=== PATIENT | female | born 1955 | race African-American/Black ===

== ENCOUNTER 2025-02-13 18:35 | Inpatient (IN) | payer MEDICARE, MEDICAID ==
[~2025-02-13] VITALS: Ht 160 cm; Wt 61.2 kg
[2025-02-13 18:44] VITALS: O2SAT 90
[2025-02-13 19:25] LABS: MEAN PLATELET VOLUME 9.7 fl (7.4-10.4); PLATELET 116 x1000/uL (130-400); RED BLOOD CELL COUNT 1.62 mill/uL (4.2-5.4); RED CELL DISTRIBUTION WIDTH 20.8 % (11.6-14.6)
[2025-02-13 19:33] LABS: HEMATOCRIT. 16.7 % (36.0-48.0); HEMOGLOBIN. 5.3 g/dL (12.0-16.0)
[2025-02-13 19:34] LABS: UREA NITROGEN BLOOD 35 mg/dL (9-23)
[2025-02-13 19:35] LABS: PROTEIN TOTAL 7.1 g/dL (6.0-8.3)
[2025-02-13 19:36] LABS: ASPARTATE AMINOTRANSFERASE 127 IU/L (<34); BILIRUBIN DIRECT 0.2 mg/dL (<=3.0); BILIRUBIN TOTAL 0.3 mg/dL (0.1-1.0)
[2025-02-13 19:53] LABS: CREATININE 7.4 mg/dL (0.6-1.0)
[2025-02-13 20:17] LABS: LYMPHOCYTES % MANUAL 23.0 % (20.0-60.0); MONOCYTES % MANUAL 7.0 % (2.0-8.0); NEUTROPHILS % MANUAL 70.0 % (45.0-75.0); NUCLEATED RED BLOOD CELLS 2 /100 WBC; PLATELET ESTIMATE DECREASED
[2025-02-13 22:00] VITALS: BP 126/79; PULSE 78; RESP 16; TEMP 36.5; O2SAT 98
[2025-02-13] MEDS ORDERED: DEXTROSE 50% WATER 50ML SYRINGE IV PRN (23:45)
[2025-02-13] MEDS ORDERED: ACETAMINOPHEN 325MG TABLET PO PRN ×2 (23:45)
[2025-02-13] MEDS ORDERED: DIPHENHYDRAMINE 50MG/ML VIAL IV PRN (23:45)
[2025-02-13] MEDS ORDERED: ONDANSETRON HCL 4MG/2ML INJ IV PRN (23:45)
[2025-02-14] VITALS (22 sets, daily range): BP systolic 97–147; BP diastolic 42–80; PULSE 55–79; RESP 12–20; TEMP 35.11392–38.6142; O2SAT 96–100
[2025-02-14] MEDS ORDERED: ARIP5TAB51 PO (04:57)
[2025-02-14] MEDS ORDERED: ALLO100T PO (04:57)
[2025-02-14] MEDS ORDERED: QUET25TA36 PO (05:02)
[2025-02-14] MEDS ORDERED: OLAN10TA72 PO (05:02)
[2025-02-14] MEDS ORDERED: LEVO25TA7 PO (05:02)
[2025-02-14] MEDS ORDERED: LISI-186 PO (05:02)
[2025-02-14] MEDS ORDERED: TRAZ-251 PO (05:02)
[2025-02-14] MEDS: SODIUM CHLORIDE 0.9% 1,000 ML IV SCH (06:07)
[2025-02-14] MEDS: BLOOD SUGAR DIAGNOSTIC STRIP TEST SCH (07:10)
[2025-02-14] MEDS: SODIUM CHLORIDE 0.9% 3ML FLUSH IVF SCH (09:06)
[2025-02-14] MEDS: ARIPIPRAZOLE 5MG TABLET PO SCH (09:07)
[2025-02-14] MEDS: INSULIN LISPRO 100 UNITS/ML SUBCUT SCH (09:07)
[2025-02-14] MEDS: LISINOPRIL 5MG TABLET PO SCH (09:07)
[2025-02-14] MEDS: PANTOPRAZOLE SODIUM 40 MG/VIAL IV SCH (09:07)
[2025-02-14] MEDS: TRAZODONE HCL 50MG TABLET PO SCH (20:53)
[2025-02-15] VITALS: BP 122/46; PULSE 69; RESP 16; TEMP 36.6; O2SAT 98
[2025-02-15 04:00] VITALS: BP 147/50; PULSE 70; RESP 18; TEMP 36.6; O2SAT 98
[2025-02-15 08:00] VITALS: BP 140/48; PULSE 65; RESP 18; TEMP 36.6; O2SAT 98
[2025-02-15] MEDS: FOLIC ACID/VITAMIN B COMP W-C TABLET PO SCH (10:53)
[2025-02-15 12:00] VITALS: BP 138/50; PULSE 67; RESP 18; TEMP 36.7; O2SAT 99
[2025-02-15 13:13] LABS: HEMATOCRIT. 26.5 % (36.0-48.0); HEMOGLOBIN. 8.7 g/dL (12.0-16.0); MEAN PLATELET VOLUME 9.8 fl (7.4-10.4); PLATELET 109 x1000/uL (130-400); RED BLOOD CELL COUNT 2.73 mill/uL (4.2-5.4); RED CELL DISTRIBUTION WIDTH 20.1 % (11.6-14.6)
[2025-02-15 13:30] LABS: PHOSPHORUS 3.5 mg/dL (2.5-4.9)
[2025-02-15] MEDS ORDERED: MENTHOL/LANOLIN/CALAMINE/ZN OX OINT 71GM TOP PRN (14:00)
[2025-02-15 16:00] VITALS: BP 140/48; PULSE 68; RESP 17; TEMP 36.6; O2SAT 98
[2025-02-15] MEDS: POTASSIUM CHLORIDE 20MEQ TABLET SR PO SCH (17:41)
[2025-02-15 17:59] LABS: LYMPHOCYTES % MANUAL 17.0 % (20.0-60.0); MONOCYTES % MANUAL 5.0 % (2.0-8.0); NEUTROPHILS % MANUAL 78.0 % (45.0-75.0); NUCLEATED RED BLOOD CELLS 4 /100 WBC; PLATELET ESTIMATE NORMAL
[2025-02-15 20:00] VITALS: BP 121/56; PULSE 82; RESP 20; TEMP 36.7; O2SAT 98
[2025-02-16] VITALS (12 sets, daily range): BP systolic 103–153; BP diastolic 55–80; PULSE 70–93; RESP 17–20; TEMP 36–37.00296; O2SAT 96–98
[2025-02-16] MEDS: LORAZEPAM 2MG/ML UD SYRINGE IV SCH (12:13)
[2025-02-17] VITALS: BP 130/80; PULSE 83; RESP 18; TEMP 37; O2SAT 97
[2025-02-17 04:00] VITALS: BP 145/58; PULSE 81; RESP 20; TEMP 36.7; O2SAT 98
[2025-02-17 08:00] VITALS: BP 129/85; PULSE 79; RESP 18; TEMP 36.6; O2SAT 98
[2025-02-17 12:00] VITALS: BP 132/80; PULSE 89; RESP 18; TEMP 37.1; O2SAT 98
[2025-02-17 16:00] VITALS: BP 132/70; PULSE 74; RESP 18; TEMP 37; O2SAT 98
[2025-02-17 20:00] VITALS: BP 153/69; PULSE 96; RESP 19; TEMP 37.1; O2SAT 100
[2025-02-18] VITALS (15 sets, daily range): BP systolic 116–166; BP diastolic 44–80; PULSE 73–89; RESP 16–18; TEMP 36.22512–36.8; O2SAT 95–100
[2025-02-18] MEDS: ZOLPIDEM TARTRATE 5MG TABLET PO PRN (02:50)
[2025-02-18] MEDS: PROMETHAZINE/DEXTROMETHORPHAN 6.25-15MG/5ML PO PRN (03:53)
[2025-02-18] MEDS: ARIPIPRAZOLE 5MG TABLET PO SCH (13:38)
[2025-02-18] MEDS: LOPERAMIDE HCL 2MG CAPSULE PO PRN (20:38)
[2025-02-18] MEDS: QUETIAPINE FUMARATE 25MG TABLET PO SCH (20:38)
[2025-02-19] VITALS: BP 148/75; PULSE 80; RESP 18; TEMP 36.1; O2SAT 96
[2025-02-19 04:00] VITALS: BP 133/55; PULSE 81; RESP 18; TEMP 36.2; O2SAT 96
[2025-02-19 08:30] VITALS: BP 101/41; PULSE 73; RESP 18; TEMP 35.6; O2SAT 97
[2025-02-19 08:37] LABS: HEMATOCRIT. 25.0 % (36.0-48.0); HEMOGLOBIN. 8.3 g/dL (12.0-16.0); MEAN PLATELET VOLUME 8.8 fl (7.4-10.4); PLATELET 121 x1000/uL (130-400); RED BLOOD CELL COUNT 2.61 mill/uL (4.2-5.4); RED CELL DISTRIBUTION WIDTH 18.3 % (11.6-14.6)
[2025-02-19 08:46] LABS: UREA NITROGEN BLOOD 48.0 mg/dL (9-23)
[2025-02-19 08:52] LABS: CREATININE 9.3 mg/dL (0.6-1.0)
[2025-02-19] MEDS: POTASSIUM CHLORIDE 20MEQ TABLET SR PO ONE (11:13)
[2025-02-19 12:58] VITALS: BP 100/53; PULSE 76; RESP 18; TEMP 36.2; O2SAT 98
[2025-02-19 16:00] VITALS: BP 112/71; PULSE 74; RESP 18; TEMP 35.9; O2SAT 98
[2025-02-19 20:00] VITALS: BP 144/66; PULSE 76; RESP 18; TEMP 36.3; O2SAT 99
[2025-02-20] VITALS: BP 151/59; PULSE 88; RESP 18; TEMP 36.3; O2SAT 96
[2025-02-20 04:00] VITALS: BP 143/62; PULSE 73; RESP 18; TEMP 36.3; O2SAT 98
[2025-02-20 08:00] VITALS: BP 134/50; PULSE 78; RESP 19; TEMP 36.5; O2SAT 98
[2025-02-20 12:00] VITALS: BP 110/45; PULSE 72; RESP 18; TEMP 36.6; O2SAT 98
[2025-02-20 16:00] VITALS: BP 128/54; PULSE 71; RESP 18; TEMP 36.7; O2SAT 97
[2025-02-20 20:00] VITALS: BP 144/48; PULSE 76; RESP 18; TEMP 36.4; O2SAT 100
[2025-02-20 22:30] LABS: LYMPHOCYTES % MANUAL 30.0 % (20.0-60.0); MONOCYTES % MANUAL 2.0 % (2.0-8.0); NEUTROPHILS % MANUAL 68.0 % (45.0-75.0); PLATELET ESTIMATE DECREASED
[2025-02-21] VITALS: BP 140/46; PULSE 72; RESP 17; TEMP 36.4; O2SAT 99
[2025-02-21 04:00] VITALS: BP 123/40; PULSE 77; RESP 18; TEMP 36.4; O2SAT 99
[2025-02-21 08:00] VITALS: BP 134/55; PULSE 70; RESP 18; O2SAT 96
[2025-02-21] MEDS: PANTOPRAZOLE 40MG DR TABLET PO SCH (11:12)
[2025-02-21 12:30] VITALS: BP 118/52; PULSE 77; RESP 18; TEMP 36.4; O2SAT 99
[2025-02-21 14:09] LABS: HEMATOCRIT. 27.2 % (36.0-48.0); HEMOGLOBIN. 8.7 g/dL (12.0-16.0); MEAN PLATELET VOLUME 8.9 fl (7.4-10.4); PLATELET 169 x1000/uL (130-400); RED BLOOD CELL COUNT 2.76 mill/uL (4.2-5.4); RED CELL DISTRIBUTION WIDTH 19.2 % (11.6-14.6)
[2025-02-21 16:00] VITALS: BP 143/87; PULSE 75; RESP 18; TEMP 36.6; O2SAT 95
[2025-02-21 20:00] VITALS: BP 135/53; PULSE 73; RESP 18; TEMP 36.8; O2SAT 95
[2025-02-21 21:44] LABS: LYMPHOCYTES % MANUAL 32.0 % (20.0-60.0); MONOCYTES % MANUAL 10.0 % (2.0-8.0); NEUTROPHILS % MANUAL 58.0 % (45.0-75.0); PLATELET ESTIMATE NORMAL
[2025-02-22] VITALS (7 sets, daily range): BP systolic 124–139; BP diastolic 41–64; PULSE 68–88; RESP 17–20; TEMP 36.2–36.8; O2SAT 95–99
[2025-02-23] VITALS (12 sets, daily range): BP systolic 120–160; BP diastolic 43–76; PULSE 62–93; RESP 16–20; TEMP 36.1–36.55848; O2SAT 97–100
[2025-02-24] MEDS ORDERED: ENOXAPARIN 30MG/0.3ML SYR SUBCUT SCH (09:00)
== END 2025-02-23 21:45 | DRG 808 ==
LOC: ER 18:35 → 8WST 20:11 → EDBEDREQTM 20:13 → EDBEDREQ 20:13 → ENRESERV 22:44 → 4WST 02-21 15:44
PROVIDERS: ADMIT Internal Medicine; ATTEND Internal Medicine
PROC: 30233N1 Transfusion of Nonautologous Red Blood Cells into Peripheral Vein, Percutaneous Approach (ICD-10-PCS; principal; 2025-02-13)
PROC: 5A1D70Z Performance of Urinary Filtration, Intermittent, Less than 6 Hours Per Day (ICD-10-PCS; 2025-02-14)
PROC: 5A1D70Z Performance of Urinary Filtration, Intermittent, Less than 6 Hours Per Day (ICD-10-PCS; 2025-02-16)
PROC: 5A1D70Z Performance of Urinary Filtration, Intermittent, Less than 6 Hours Per Day (ICD-10-PCS; 2025-02-18)
PROC: 5A1D70Z Performance of Urinary Filtration, Intermittent, Less than 6 Hours Per Day (ICD-10-PCS; 2025-02-23)
DX: D61.818 Other pancytopenia (principal); N18.6 End stage renal disease; I12.0 Hypertensive chronic kidney disease with stage 5 chronic kidney disease or end stage renal disease; E87.1 Hypo-osmolality and hyponatremia; Z99.2 Dependence on renal dialysis; E11.22 Type 2 diabetes mellitus with diabetic chronic kidney disease; E03.9 Hypothyroidism, unspecified; J44.9 Chronic obstructive pulmonary disease, unspecified; F31.9 Bipolar disorder, unspecified; E87.6 Hypokalemia; E78.00 Pure hypercholesterolemia, unspecified; F20.9 Schizophrenia, unspecified; Z88.0 Allergy status to penicillin; Z88.5 Allergy status to narcotic agent; Z88.6 Allergy status to analgesic agent
CPT/HCPCS: 36415; 80048; 80051; 80076; 82962; 84100; 85014; 85018; 85025; 86850; 86900; 86920; 90935; 99291; A4606; J1815; J2060; J2470; J7030; P9016